=== PATIENT | female | born 1970 | race Hispanic/Latino ===

== ENCOUNTER 2020-11-15 09:25 | Emergency (ER) | payer OTHER ==
[~2020-11-15] VITALS: Ht 157.5 cm; Wt 69.0 kg
[2020-11-15] MEDS ORDERED: HYDROCODONE/APAP 5MG-325MG TAB PO STA (09:41)
== END 2020-11-15 10:36 | disposition home or self-care (01) ==
LOC: FSED 09:37
DX: S93.402A Sprain of unspecified ligament of left ankle, initial encounter (principal)
CPT/HCPCS: 99283